=== PATIENT | female | born 1980 | race Two or more races ===

== ENCOUNTER 2025-02-24 22:31 | Emergency (ER) | payer SELFPAY ==
[2025-02-24 22:32] VITALS: BMI 27.4
== END 2025-02-24 22:38 | disposition left against medical advice (07) ==
PROVIDERS: Emergency Provider Emergency Medicine
DX: Z53.21 Procedure and treatment not carried out due to patient leaving prior to being seen by health care provider (principal)
CPT/HCPCS: 99282